=== PATIENT | male | born 1990 | race Caucasian/White ===

== ENCOUNTER 2021-01-23 06:13 | Emergency (ER) | payer OTHER ==
[2021-01-23 07:01] LABS: BILIRUBIN NEGATIVE (NEGATIVE); BLOOD 3+ Ery/uL (NEGATIVE); COLOR YELLOW (YELLOW); GLUCOSE (U) NORMAL (NORMAL); LEUKOCYTES NEGATIVE Leu/uL (NEGATIVE); NITRITE NEGATIVE (NEGATIVE); PROTEIN TRACE (LOW) mg/dL (NEGATIVE); SPECIFIC GRAVITY >=1.030 (1.001-1.030); UROBILINOGEN 0.2 mg/dL (0.2-1.0); pH 5.5 (5.0-9.0)
[2021-01-23 07:02] LABS: CLARITY HAZY (CLEAR)
[2021-01-23 07:09] LABS: BACTERIA TRACE; URINARY RBC TNTC; URINARY WBC RARE
[2021-01-23 07:11] LABS: AMORPHOUS URATES CRYSTALS MODERATE
[2021-01-23 07:35] LABS: BUN/CREAT RATIO (CALC) 10.2 RATIO; CREATININE 0.88 mg/dL (0.67-1.17); POTASSIUM 4.2 mmol/L (3.5-5.1)
[2021-01-23 07:52] LABS: BASOPHIL 0.6 % (0-2); EOSINOPHIL 0.9 % (0-5); HCT 48.6 % (42.0-52.0); HGB 16.5 g/dl (13.2-18.0); LYMPHOCYTE 23.6 % (15-48); MCH 31.1 pg (25.0-31.0); MCV 91.7 fL (78.0-100.0); MONOCYTE 6.4 % (0-12); NEUTROPHIL 68.2 % (41-80); NRBC 0; PLT 321 K/uL (150-400); RDW 12.4 % (11.5-14.0); WBC 7.9 K/uL (4.0-10.5)
[2021-01-23] MEDS ORDERED: KETOROLAC TROME10 MG PO (09:46)
[2021-01-23] MEDS ORDERED: NORCO 5-325 TA1 EACH PO (09:46)
[2021-01-23] MEDS ORDERED: FLOMAX0.4 MG PO (09:46)
== END 2021-01-23 09:53 | disposition home or self-care (01) ==
LOC: FER 06:13
PROVIDERS: Emergency Medicine
DX: N20.1 Calculus of ureter (principal)
CPT/HCPCS: 36415; 80048; 81001; 85025; J1885